=== PATIENT | male | born 1965 | race Caucasian/White ===

== ENCOUNTER 2017-03-19 13:52 | Inpatient (IN) | payer OTHER ==
--- NOTE | 2017-03-19 15:12 | EDPHY ---
HPI/HX/ROS/PE/MDM Narrative: CHIEF COMPLAINT: Shortness of breath HISTORY OF PRESENT ILLNESS: This patient is a diabetic 51-year-old male who presents to the Emergency Department complaining of exertional shortness of breath beginning six days prior to arrival, one day after undergoing a non- contrast MRI to evaluate his chronic back pain. He reports that he has had difficulty walking or moving around without worsening dyspnea since the MRI. He also describes increased upper abdominal bloating. He denies nausea, vomiting, urinary complaints, or chest pain. He denies associated cold symptoms; no fever , chills, cough, or headache. He uses a CPAP while sleeping but has only been using it for one hour per night. No history of asthma, emphysema, DVT, PE, or cardiac disease. REVIEW OF SYSTEMS: Aside from elements discussed in the HPI, a comprehensive 10-point review of systems was reviewed and is negative apart from moderate back pain, chronic. PAST MEDICAL HISTORY: 1. Chronic back pain (MRI last week) - [facility]. No current medications. 2. Hypertension (Lisinopril) 3. Diabetes (Metformin) 4. Ventral hernia, previously evaluated by Dr. Pa. 5. Sleep apnea (CPAP) SOCIAL HISTORY: [facility] patient. at bedside. Non-smoker. Occasional alcohol use. PHYSICAL EXAM: VITAL SIGNS: Reviewed by me GENERAL: Well-developed, obese, appears uncomfortable with movement, in no respiratory distress. HEENT: Atraumatic. Eyes: No icterus, no injection. Mouth: dry mucous membranes. No erythema or lesions. Neck: supple with no adenopathy. LUNGS: Clear to auscultation bilaterally, no wheezes, rhonchi or rales. CARDIAC: Tachycardic, regular rhythm, no rubs, murmurs or gallops. ABDOMEN: Soft, diffusely tender, bowel sounds normal, palpable ventral hernia. BACK: No CVA tenderness. EXTREMITIES: No trauma. Trace pitting edema. Range of motion is normal throughout. NEURO: Alert and oriented, grossly nonfocal. SKIN: Warm and dry, no rash. PSYCHIATRIC: Normal mentation, no agitation. ED Course: This 51-year-old male presents with complaints of persistent exertional dyspnea for the past six days and abdominal pressure that appears to exacerbate the shortness of breath. He is mildly tachycardic at time of exam. O2 sat 92% on RA at triage. His abdomen is diffusely tender, most significant to the epigastrium. He appears uncomfortable with movement and reports worsening dyspnea; however, his lungs are clear to auscultation. Will proceed with cardiopulmonary workup including: labs, EKG, and chest x-ray. IV established. 500ml IV NS administered. 1mg IV Dilaudid administered for back pain. X-ray of the chest reviewed and demonstrates cardiomegaly and is suspicious for left lower lobe pneumonia. Labs reviewed: Troponin elevated at 0.043. NT-proBNP at 7010. WBC elevated at 16.25. Will proceed with sepsis screen. 1 gram IV Ceftriaxone administered for treatment of pneumonia. 1645: I discussed lab and imaging results with the patient as well as my recommendation for admission for further treatment and monitoring of acute CHF and cardiac ischemia. He expresses agreement to this. 324mg PO Aspirin and 20mg IV Lasix administered. 1700: Patient's chest x-ray was read by Radiology as demonstrating possible left lower lobe pneumonia. With this finding, in light of the patient's persistent low-grade tachycardia, and elevated white blood cell count, evaluation for sepsis was started. D-dimer obtained and is elevated at 3.97. CTA of the chest ordered. Severe Sepsis/Septic Shock Care Note The patient presents to the ED with shortness of breath. Possible pneumonia was identified on a chest x-ray at 5:00 p.m. The patient did have evidence of end- organ dysfunction secondary to an elevated lactic acid and did met criteria for severe sepsis. This condition was identified by myself at 1800. The patients vital signs are 150/99, 107, 91% on 2 L, 36.7. The patient has a venous lactic acid performed within 3 hours of the identification of severe sepsis which was found to be 3.4. Patient did have a CT scan performed which demonstrated massive pulmonary emboli bilaterally with central emboli and lower lobe emboli. No pneumonia was identified on the CT scan. Patient's course was discussed with the hospitalist service. I believe that given the patient's the pulmonary embolism, elevated BMP, borderline troponin, patient's diagnosis is most likely pulmonary hypertension secondary to pulmonary embolism resulting in congestive failure and cardiac ischemia. Given this, the patient will not receive 30 cc of fluid per kg and did not receive IV antibiotics. I do not believe the patient is septic. 1735: Consultation with Dr. Franco Govea, hospitalist, who accepts admission 181: CTA results reported to me by Dr. Hdz and are significant for massive PEs bilaterally. I shared these results with Dr. Govea who will manage his treatment following admission. EKG INTERPRETATION: The 12 lead EKG was interpreted by myself: Sinus tachycardia, rate 107; left posterior fascicular block; nonspecific T abnormalities in the inferior leads. See hard copy and/or "tracemaster" electronic copy for interpretation. MDM: Critical care time spent by me, Dr. Diane exclusively with this patient was 45 minutes, exclusive of PA time and exclusive of procedures. The organ system at risk was cardiac and pulmonary and I gave IV fluids, anticoagulants, diuretics, and evaluated the patient for pneumonia, to prevent worsening of the patients condition. Critical care time included obtaining history, performing a physical exam, bedside monitoring of interventions, collecting and interpreting tests and discussion with consultants but not including time spent performing procedures. Differential diagnosis for the patient's shortness of breath was considered including but not limited to pulmonary infectious processes, pulmonary emboli, pulmonary edema, pulmonary infection, congestive heart failure, and cardiac causes. - Data Points Imaging Results: Imaging Impressions Chest X-Ray 03/19/17 15:30 Impression: 1. Moderate enlargement the cardiac silhouette. 2. Possible left lower lobe pneumonia. 3. Enlargement of the hilar structures bilaterally, possible pulmonary artery hypertension versus lymphadenopathy.. Chest/Thorax CTA 03/19/17 17:25 Impression: Large line bilateral pulmonary emboli. Associated bowing of the interventricular septum toward the left ventricle. Results called to Dr. Dilia Diane at the time of the interpretation. Laboratory Results: Laboratory Results 03/19/17 15:15 03/19/17 15:15 03/19/17 03/19/17 03/19/17 16:40 16:15 15:15 WBC RBC Hgb Hct MCV MCH MCHC RDW Plt Count MPV Neut % (Auto) Lymph % (Auto) [place] % (Auto) Eos % (Auto) Baso % (Auto) Nucleat RBC Rel Count Absolute Neuts (auto) Absolute Lymphs (auto) Absolute Monos (auto) Absolute Eos (auto) Absolute Basos (auto) Absolute Nucleated RBC Immature Gran % Immature Gran # PT 17.8 SEC H SEC (12.0-15.0) INR 1.47 H (0.83-1.16) APTT 58.8 SEC H SEC (23.0-38.0) D-Dimer 3.97 ug/mLFEU H ug/mLFEU (0.00-0.50) Sodium 140 mEq/L mEq/L (134-144) Potassium 5.0 mEq/L mEq/L (3.5-5.2) Chloride 110 mEq/L mEq/L (97-110) Carbon Dioxide 17 mEq/l L mEq/l (22-31) Anion Gap 13 mEq/L mEq/L (8-16) BUN 24 mg/dL H mg/dL (7-23) Creatinine 1.1 mg/dL mg/dL (0.7-1.3) Estimated GFR > 60 Glucose 243 mg/dL H mg/dL (70-100) Calcium 9.5 mg/dL mg/dL (8.5-10.4) Total Bilirubin 1.4 mg/dL mg/dL 1.4 mg/dL mg/dL (0.1-1.4) (0.1-1.4) Conjugated Bilirubin 0.7 mg/dL H mg/dL (0.0-0.5) Unconjugated Bilirubin 0.7 mg/dL mg/dL (0.0-1.1) AST 32 IU/L IU/L (17-59) ALT 43 IU/L IU/L (21-72) Alkaline Phosphatase 67 IU/L IU/L (38-126) Troponin I 0.043 ng/mL H ng/mL (0-0.034) NT-Pro-B Natriuret Pep 7010 pg/mL H pg/mL (0-125) Total Protein 6.6 g/dL g/dL (6.3-8.2) Albumin 4.1 g/dL g/dL (3.5-5.0) 03/19/17 15:15 WBC 16.25 10^3/uL H 10^3/uL (3.80-9.50) RBC 6.62 10^6/uL H 10^6/uL (4.40-6.38) Hgb 18.5 g/dL H g/dL (13.7-17.5) Hct 56.6 % H % (40.0-51.0) MCV 85.5 fL fL (81.5-99.8) MCH 27.9 pg pg (27.9-34.1) MCHC 32.7 g/dL g/dL (32.4-36.7) RDW 18.6 % H % (11.5-15.2) Plt Count 274 10^3/uL 10^3/uL (150-400) MPV 11.6 fL fL (8.7-11.7) Neut % (Auto) 84.1 % H % (39.3-74.2) Lymph % (Auto) 10.7 % L % (15.0-45.0) [place] % (Auto) 4.2 % L % (4.5-13.0) Eos % (Auto) 0.1 % L % (0.6-7.6) Baso % (Auto) 0.5 % % (0.3-1.7) Nucleat RBC Rel Count 0.0 % % (0.0-0.2) Absolute Neuts (auto) 13.68 10^3/uL H 10^3/uL (1.70-6.50) Absolute Lymphs (auto) 1.74 10^3/uL 10^3/uL (1.00-3.00) Absolute Monos (auto) 0.68 10^3/uL 10^3/uL (0.30-0.80) Absolute Eos (auto) 0.01 10^3/uL L 10^3/uL (0.03-0.40) Absolute Basos (auto) 0.08 10^3/uL 10^3/uL (0.02-0.10) Absolute Nucleated RBC 0.00 10^3/uL 10^3/uL (0-0.01) Immature Gran % 0.4 % % (0.0-1.1) Immature Gran # 0.06 10^3/uL 10^3/uL (0.00-0.10) PT INR APTT D-Dimer Sodium Potassium Chloride Carbon Dioxide Anion Gap BUN Creatinine Estimated GFR Glucose Calcium Total Bilirubin Conjugated Bilirubin Unconjugated Bilirubin AST ALT Alkaline Phosphatase Troponin I NT-Pro-B Natriuret Pep Total Protein Albumin Medications Given: Discontinued Medications Furosemide (Lasix Injection) 20 mg IVP EDNOW ONE Stop: 03/19/17 17:23 Last Admin: 03/19/17 18:13 Dose: 20 mg Heparin Sodium (Porcine) (Heparin Injection) 0 unit IVP EDNOW ONE PRN Reason: Protocol Stop: 03/19/17 18:11 Last Admin: 03/19/17 18:54 Dose: Not Given Hydromorphone HCl (Dilaudid) 1 mg IVP EDNOW ONE Stop: 03/19/17 16:08 Last Admin: 03/19/17 16:47 Dose: 1 mg Sodium Chloride (Ns) 500 mls @ 0 mls/hr IV ONCE ONE PRN Reason: As Directed Stop: 03/19/17 15:31 Last Admin: 03/19/17 15:41 Dose: 500 mls Ceftriaxone Sodium/Dextrose (Rocephin 1 Gm (Premix)) 50 mls @ 100 mls/hr IV EDNOW ONE PRN Reason: Protocol Stop: 03/19/17 17:50 Last Admin: 03/19/17 18:13 Dose: Not Given Heparin Sodium (Porcine) (Heparin 50 Units/Ml (Premix)) 500 mls @ 0 mls/hr IV EDNOW ONE; Per Protocol PRN Reason: Protocol Stop: 03/19/17 18:11 Last Admin: 03/19/17 18:55 Dose: Not Given General Time Seen by Provider: 03/19/17 15:06 Initial Vital Signs: Initial Vital Signs Temperature (C) 36.7 C 03/19/17 14:02 Heart Rate 101 H 03/19/17 14:02 Respiratory Rate 18 03/19/17 14:02 Blood Pressure 143/104 H 03/19/17 14:02 O2 Sat (%) 92 03/19/17 14:02 O2 Delivery Mode Nasal Cannula O2 (L/minute) 2 Allergies/Adverse Reactions: No Known Allergies Allergy (Unverified 03/19/17 14:00) Home Medications: Medication Instructions Recorded Aspirin [Aspirin 81mg (*)] 81 mg PO DAILY 03/19/17 Ezetimibe [Zetia 10 MG (*)] 10 mg PO HS 03/19/17 Furosemide [Lasix] 20 mg PO DAILY PRN 03/19/17 Levothyroxine [Synthroid 175 mcg 175 mcg PO DAILY06 03/19/17 (*)] Lisinopril [Zestril 20 mg (*)] 10 mg PO DAILY 03/19/17 [place]-3 Fatty Acids [Fish Oil 1000 1,000 mg PO DAILY 03/19/17 mg (*)] Potassium Chloride [Klor-Con M10] 20 meq PO DAILY PRN 03/19/17 metFORMIN HCL [Glucophage 500 mg 500 mg PO BID 03/19/17 (*)] Departure - Departure Disposition: [facility] Inpatient Acute Clinical Impression: Cardiac ischemia CHF (congestive heart failure) Qualifiers: Congestive heart failure type: unspecified congestive heart failure type Congestive heart failure chronicity: acute Qualified Code(s): I50.9 - Heart failure, unspecified Chronic back pain Qualifiers: Back pain location: back pain in unspecified location Back pain laterality: bilateral Qualified Code(s): M54.9 - Dorsalgia, unspecified Pulmonary embolism Qualifiers: Pulmonary embolism type: other Chronicity: acute Acute cor pulmonale presence: with acute cor pulmonale Qualified Code(s): I26.09 - Other pulmonary embolism with acute cor pulmonale Condition: Fair Report Scribed for: Dilia Diane Report Scribed by: Ailyn Holt Date of Report: 03/19/17 Time of Report: 15:12 Physician Review and Approval Statement: Portions of this note were transcribed by a medical cash poster. I personally performed a history, physical exam, medical decision making, and confirmed accuracy of information the transcribed note.
[2017-03-19] MEDS ORDERED: NS 500 ML IV ONE (15:30)
[2017-03-19 15:39] LABS: % IMMATURE GRANULYOCYTES 0.4 % (0.0-1.1); ABSOLUTE IMMATURE GRANULOCYTES 0.06 10^3/uL (0.00-0.10); ADD DIFF? NO; ADD MORPH? NO; ADD SCAN? NO; ATYPICAL LYMPHOCYTE FLAG 0 (0-99); FRAGMENT RBC FLAG 0 (0-99); HEMATOCRIT 56.6 % (40.0-51.0); HEMOGLOBIN 18.5 g/dL (13.7-17.5); LEFT SHIFT FLG 0 (0-99); LIPEMIA HEMOLYSIS FLAG 80 (0-99); MEAN CELL HEMOGLOBIN 27.9 pg (27.9-34.1); MEAN CELL HEMOGLOBIN CONCENTR. 32.7 g/dL (32.4-36.7); MEAN CELL VOLUME 85.5 fL (81.5-99.8); MEAN PLATELET VOLUME 11.6 fL (8.7-11.7); PLATELET CLUMPS FLAG 0 (0-99); PLATELET COUNT 274 10^3/uL (150-400); RED BLOOD CELL COUNT 6.62 10^6/uL (4.40-6.38); RED CELL DISTRIBUTION WIDTH 18.6 % (11.5-15.2)
--- NOTE | 2017-03-19 15:46 | CPEKG ---
Heart Rate: 107 RR Interval: 561 P-R Interval: 160 QRSD Interval: 94 QT Interval: 344 QTC Interval: 459 P [place]: 25 QRS [place]: 139 T Wave [place]: -34 EKG Severity - ABNORMAL ECG - EKG Impression: SINUS TACHYCARDIA EKG Impression: LEFT POSTERIOR FASCICULAR BLOCK EKG Impression: NONSPECIFIC T ABNORMALITIES, INFERIOR LEADS Electronically Signed By: Lobo Sandoval 22-Mar-2017 12:16:05
[2017-03-19 16:06] LABS: ALANINE AMINOTRANSFERASE 43 IU/L (21-72); ALBUMIN 4.1 g/dL (3.5-5.0); ALKALINE PHOSPHATASE 67 IU/L (38-126); ANION GAP 13 mEq/L (8-16); ASPARTATE AMINOTRANSFERASE 32 IU/L (17-59); BILIRUBIN,TOTAL 1.4 mg/dL (0.1-1.4); BILIRUBIN-CONJUGATED 0.7 mg/dL (0.0-0.5); BILIRUBIN-UNCONJUGATED 0.7 mg/dL (0.0-1.1); CALCIUM 9.5 mg/dL (8.5-10.4); CARBON DIOXIDE 17 mEq/l (22-31); CHLORIDE 110 mEq/L (97-110); CREATININE 1.1 mg/dL (0.7-1.3); GLOMERULAR FILTRATION RATE > 60; GLUCOSE 243 mg/dL (70-100); SODIUM 140 mEq/L (134-144); TOTAL PROTEIN 6.6 g/dL (6.3-8.2)
[2017-03-19] MEDS ORDERED: HYDROmorphONE/DILAUDID 1 MG/ML SYR IVP ONE (16:07)
[2017-03-19 16:17] LABS: TROPONIN I 0.043 ng/mL (0-0.034)
[2017-03-19] MEDS ORDERED: FUROSEMIDE 20 MG/2 ML VIAL IVP ONE ×2 (17:22→18:47)
[2017-03-19] MEDS ORDERED: IOPAMIDOL (ISOVUE 370) 100 ML BTL IV ONE (17:33)
[2017-03-19 17:38] LABS: BILIRUBIN,TOTAL 1.4 mg/dL (0.1-1.4)
[2017-03-19 17:40] LABS: APTT 58.8 SEC (23.0-38.0); INR 1.47 (0.83-1.16); PROTIME(PATIENT) 17.8 SEC (12.0-15.0)
[2017-03-19] MEDS ORDERED: HEPARIN/DEXTROSE 500 ML IV ONE (18:10)
[2017-03-19] MEDS ORDERED: HEPARIN 10,000 UNIT/10 ML MDV IVP ONE ×2 (18:10→18:46)
[2017-03-19] MEDS ORDERED: HEPARIN 10,000 UNIT/10 ML MDV IVP PRN (18:46)
[2017-03-19 19:04] LABS: LACGHOST ORDER
[2017-03-19] MEDS: HEPARIN/DEXTROSE 500 ML IV SCH (19:45)
--- NOTE | 2017-03-19 19:45 | GHP ---
[f rep st] HISTORY AND PHYSICAL DATE OF ADMISSION: 03/19/2017 CHIEF COMPLAINT: Shortness of breath. HISTORY OF PRESENT ILLNESS: This is a 51-year-old male with history of chronic back pain, ongoing 1 6-1/2 years, that has been worsening over the past 2-3 years and has been followed at the [place]. He fernandez d an MRI of his back on Sunday. Since the MRI, he has reported increased shortness of breath. For the past week, he has noticed extreme dyspnea on exertion. He has had orthopnea for some time and s leeps in a recliner. He denies any chest pain. He denies any fevers or chills. He was noted to fernandez ve a room air oxygen saturation of 87% on initial presentation to the emergency department. The patient has a history of hypoxemia that has been attributed to obstructive sleep apnea. He has been using a CPAP since July, but he thinks he has actually been feeling worse since using the CP AP. PAST MEDICAL HISTORY: 1. Diabetes. 2. Obstructive sleep apnea. 3. Chronic low back pain. PAST SURGICAL HISTORY: 1. Left little finger ORIF. 2. Adenoidectomy for obstructive sleep apnea. HOME MEDICATIONS: Reviewed. Refer to [employer] for details. ALLERGIES: No known drug allergies. SOCIAL HISTORY: He lives with his in [place]. He chews tobacco occasionally. He denies any illicit drug use. He drinks alcohol occasionally. FAMILY HISTORY: Reviewed and noncontributory. REVIEW OF SYSTEMS: Comprehensive 10-point review of systems was done and was negative except for as mentioned in the HPI and below. BACK: The patient has chronic low back pain that radiates to both of his thighs and has some numbness. This pain has been stable. He has noticed increased pain in his lower legs over the past few days as well. He has been taking Lasix as needed, which he had lef t over from a hospitalization for DKA a few years ago. PHYSICAL EXAMINATION: VITAL SIGNS: Blood pressure 150/99, pulse of 107, respiratory rate 16. O2 s at 91% on 2 L, 87% on room air. GENERAL: No acute distress. HEAD: Normocephalic, atraumatic. EY ES: PERRLA. Sclerae anicteric. MOUTH: Moist mucous membranes. NECK: Supple. No lymphadenopath y. CARDIOVASCULAR: S1, S2. There is no appreciable JVD. There is trace lower extremity edema. P ULMONARY: Diminished breath sounds bilaterally with no wheezes, rales, or rhonchi. Increased respi ratory effort. ABDOMEN: Soft, mildly distended. There is no guarding or rebound tenderness. Norm oactive bowel sounds. EXTREMITIES: No clubbing or cyanosis. NEURO: Cranial nerves 2-12 grossly i ntact. No focal motor or sensory deficits. SKIN: Clear. No rashes. DIAGNOSTICS: WBC 16.25, hemoglobin 18.5, hematocrit 56.6, platelets 274. D-dimer 3.97, INR 1.47. Venous lactic acid 3.4. Sodium 140, potassium 5, chloride 110, BUN 24, creatinine 1.1, glucose 243. AST and ALT within normal limits. Protein and albumin within normal limits. BNP 7010. Troponin 0.043. EKG, which I visualized and personally interpreted, shows sinus tachycardia, rate 107 beats per kaya te, with no acute ischemic changes. There is a left posterior fascicular block. Chest x-ray was done, which I also visualized and personally interpreted. Showed cardiomegaly. CT angio of the chest revealed large bilateral pulmonary emboli, associated with bowing of the inter ventricular septum towards the left ventricle. ASSESSMENT: This is a 51-year-old male presenting with: 1. Acute hypoxemic respiratory failure with dyspnea on exertion and orthopnea due to below. 2. Submassive pulmonary embolism. 3. Acute diastolic heart failure due to above. 4. History of diabetes mellitus type 2. 5. Elevated/indeterminate troponin, likely due to myocardial strain in the setting of submassive pu lmonary embolism. 6. Mild polycythemia, likely due to chronic hypoxemia. 7. Leukocytosis, most likely due to pulmonary embolism. 8. Elevated INR and PTT, possibly due to acute clot. His LFTs, including his AST, ALT, as well as total protein and albumin are within normal limits. 9. Chronic low back pain. 10. Elevated venous lactate, most likely due to hypoxemia in the setting of pulmonary embolism with out signs or symptoms of sepsis. PLAN: 1. Admit to telemetry. 2. Start heparin drip and transition to low molecular weight heparin in the morning, once he proves clinical stability. 3. Trend troponins. 4. IV Lasix has been ordered today. Should be reassessed prior to dosing again in the morning. 5. Echocardiogram. 6. Supplemental oxygen. 7. We will repeat lactic acid to ensure it is normalizing. DISPOSITION: The patient will be admitted to the hospital under inpatient status. Anticipated disc harge date is uncertain at this time; however, the patient would like to be discharged from the hosp ital as soon as it is safe, since he has a strong desire to return back to work. /[id number]/MODL
[2017-03-19] MEDS ORDERED: FUROSEMIDE 20 MG TAB PO PRN (23:11)
[2017-03-20] MEDS: LEVOTHYROXINE 175 MCG TAB PO SCH (05:54)
[2017-03-20 08:05] LABS: % IMMATURE GRANULYOCYTES 0.3 % (0.0-1.1); ABSOLUTE IMMATURE GRANULOCYTES 0.05 10^3/uL (0.00-0.10); ABSOLUTE NRBC COUNT 0.02 10^3/uL (0-0.01); ADD DIFF? NO; ADD MORPH? NO; ADD SCAN? NO; ATYPICAL LYMPHOCYTE FLAG 0 (0-99); FRAGMENT RBC FLAG 0 (0-99); HEMATOCRIT 53.2 % (40.0-51.0); HEMOGLOBIN 17.5 g/dL (13.7-17.5); LEFT SHIFT FLG 0 (0-99); LIPEMIA HEMOLYSIS FLAG 80 (0-99); MEAN CELL HEMOGLOBIN CONCENTR. 32.9 g/dL (32.4-36.7); MEAN CELL VOLUME 85.3 fL (81.5-99.8); MEAN PLATELET VOLUME 11.3 fL (8.7-11.7); NRBC-AUTO% 0.1 % (0.0-0.2); PLATELET CLUMPS FLAG 0 (0-99); PLATELET COUNT 263 10^3/uL (150-400); RED BLOOD CELL COUNT 6.24 10^6/uL (4.40-6.38); RED CELL DISTRIBUTION WIDTH 18.5 % (11.5-15.2)
[2017-03-20 08:23] LABS: ANION GAP 13 mEq/L (8-16); CARBON DIOXIDE 18 mEq/l (22-31); CHLORIDE 109 mEq/L (97-110); CREATININE 1.2 mg/dL (0.7-1.3); GLOMERULAR FILTRATION RATE > 60; GLUCOSE 186 mg/dL (70-100); POTASSIUM 4.6 mEq/L (3.5-5.2); SODIUM 140 mEq/L (134-144)
[2017-03-20 08:33] LABS: TROPONIN I 0.053 ng/mL (0-0.034)
[2017-03-20] MEDS: HEPARIN/DEXTROSE 500 ML IV SCH (09:54)
[2017-03-20] MEDS: ASPIRIN 81 MG CHEWABLE TAB PO SCH (10:07)
[2017-03-20] MEDS: LISINOPRIL 10 MG TAB PO SCH (10:07)
[2017-03-20] MEDS: OMEGA-3 FATTY ACIDS 1,000 MG CAP PO SCH (10:07)
[2017-03-20] MEDS ORDERED: D50W 25 GM/50 ML SYR IVP PRN (10:09)
--- NOTE | 2017-03-20 10:12 | HOSPPROG ---
Hospitalist Progress Note Assessment/Plan: # acute PE with markedly elevated RVSP (90mmHg per prelim report) - currently on heparin gtt - discussed with Dr Argueta - he will consult and consider systemic tPA; risks and benefits discussed # acute hypoxic resp failure d/t PE # severe pulm-htn d/t PE: there may be a small chronic component given CAMPOS but mostly this is acute # lactic acidosis d/t PE # CAMPOS # DM2 - glucs slightly elevated but reasonable - hold metformin for now - add low dose SSI # chronic low back pain ## 40 mins critical care time; critically ill from PE causing acute R sided heard failure, considering tPA Subjective: still very with minimal activity Objective: Vital Signs Temp Pulse Resp BP Pulse Ox 36.6 C 94 23 H 118/105 H 95 03/20/17 07:27 03/20/17 07:27 03/20/17 07:27 03/20/17 07:27 03/20/17 07:27 Laboratory Results 03/20/17 07:55 03/20/17 07:55 03/19/17 03/20/17 03/21/17 05:59 05:59 05:59 Intake Total 1210 Output Total 1125 Balance 85 PT 17.8 SEC (12.0-15.0) H 03/19/17 16:40 INR 1.47 (0.83-1.16) H 03/19/17 16:40 - Physical Exam Constitutional: other (dyspneic) Cardiovascular: regular rate and rhythym, no murmur, rub, or gallop, other ( prominent P2) Respiratory: no rales or rhonchi, clear to auscultation, respiratory distress ( mod/severe) Gastrointestinal: normoactive bowel sounds, soft, non-tender abdomen, no palpable masses ICD10 Worksheet Patient Problems: Problems Problem Status Onset CHF (congestive heart failure) Acute Cardiac ischemia Acute Chronic back pain Acute Pulmonary embolism Acute
--- NOTE | 2017-03-20 11:35 | ECHO ---
[id number] + + [address] : : [place] [address] : : [phone] + + Adult Echocardiographic Report + ----+ :Name: PUNEET WILSON Diann Date: 03/20/2017 09:06 AM : : Hospital Admission Number: [id number] Location: 210: :: 1965 Gender: Male Height: 67 in : :Age: 51 yrs Race: WH Weight: 250 lb : :Reason For Study: Heart failure with PE : : BSA: 2.2 meters2 : + ----+ MMode/2D Measurements \T\ Calculations LVIDd: 3.1 cm EDV(Teich): 37.6 ml Ao root diam: 3.9 cm LA dimension: 3.9 cm Normal Measurement Values: + + :LVIDd (3.5-5.7cm) IVSd (0.6-1.1cm) LVPWd (0.6-1.1cm) Aortic Root (2.0-3.7cm)Left Atrium (1.5-4.0cm): :LV Vol(d) (76-115ml) LV Vol(s) (29-48ml) Ejec Fraction (50-65%)PV Amrik (0.6- 1.2m/s) TV Amrik (0.4-1.0m/s) : :MV E Amrik (0.8-1.0m/s)MV A Amrik (0.3-1.0m/s)LVOT Amrik (0.7-1.2m/s) Asc Ao Amrik ( 0.9-1.8m/s) : + + Doppler Measurements \T\ Calculations MV E max amrik: 30.1 cm/sec Ao V2 max: 73.5 cm/sec TR max amrik: 426.0 cm/sec MV A max amrik: 53.3 cm/sec Ao max P.2 mmHg TR max P.6 mmHg MV E/A: 0.56 RAP systole: 20.0 mmHg RVSP(TR): 92.6 mmHg Left Ventricle The left ventricular cavity is small. There is normal left ventricular wall thickness. The left ventricle is hyperdynamic. Ejection Fraction = 70-75%. Flattened septum is consistent with RV pressure/volume overload. Right Ventricle The right ventricle is moderately dilated. The right ventricular systolic function is severely reduced. Atria The left atrial size is normal. The right atrium is mild to moderately dilated. The interatrial septum is intact with no evidence for an atrial septal defect. Mitral Valve The mitral valve is normal. There is no evidence of mitral valve prolapse. There is no mitral valve stenosis. Tricuspid Valve Normal tricuspid valve. There is mild tricuspid regurgitation. Right ventricular systolic pressure is 93mmHg. There is Doppler evidence for severe pulmonary hypertension. Aortic Valve The aortic valve opens well. There is no aortic stenosis. There is no aortic insufficiency. Pulmonic Valve The pulmonic valve is not well visualized. There is no pulmonic valvular regurgitation. Great Vessels The aortic root is normal size. Pericardium/Pleural There is no pericardial effusion. Conclusion A complete two-dimensional transthoracic echocardiogram was performed (2D, M-mode, Doppler and color flow Doppler). The patient has a dilated IVC. The left ventricular cavity is small. The left ventricle is hyperdynamic. Ejection Fraction = 70-75%. The right ventricle is moderately dilated. The right ventricular systolic function is severely reduced. The right atrium is mild to moderately dilated. There is mild tricuspid regurgitation. Right ventricular systolic pressure is 93mmHg. There is Doppler evidence for severe pulmonary hypertension. Final Reading Physician: Rachel Biggs signed on 03/20/2017 11:33 AM Ordering Physician: Franco Govea Performed By: Josey Cassidy RDCS
[2017-03-20] MEDS ORDERED: ALTEPLASE 100 MG in NS 200 ML IV ONE (12:05)
[2017-03-20] MEDS: INSULIN LISPRO 100 UNIT/ML SC SCH ×2 (12:15→17:08)
--- NOTE | 2017-03-20 12:32 | GCON ---
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 HISTORY OF PRESENT ILLNESS: The patient is a very pleasant 51-year-old white male with a past medic al history of diabetes, obstructive sleep apnea, and chronic back pain. He presents with a several day history of increasing breathlessness. He denies any recent surgery. There has been no long car or plane rides. He has chronic back pain and is not terribly mobile secondary to this. He had an MRI recently and subsequently had increasing shortness of breath thereafter. However, there is no c hest pain, pleuritic-type chest pain, or angina equivalent. He denies any fever or night sweats. H e is hypoxemic. PAST MEDICAL HISTORY: Significant for obstructive sleep apnea for which he is on CPAP, diabetes, ch ronic back pain. PAST SURGERIES: He has had a left finger ORIF and adenoidectomy for obstructive sleep apnea. ALLERGIES: No allergies to medications. SOCIAL HISTORY: No history of tobacco use. He does chew tobacco. Infrequent alcohol use. He live s with his in [place]. He has good family support. PHYSICAL EXAMINATION: VITAL SIGNS: Blood pressure is 133/90, pulse is 100, respirations 24, temper ature 36.8, oxygen saturation 95% on 4 L. GENERAL: He is morbidly obese but pleasant 51-year-old w britney male who is resting comfortably in no acute distress. HEENT: Eyes: IFTIKHAR, EOMI. Throat shows no erythema or tonsillar hypertrophy. NECK: Supple. No cervical adenopathy. HEART: Regular rat e and rhythm without murmurs, rubs, or gallops. LUNGS: Clear to auscultation. No wheeze or rhonch i. ABDOMEN: Soft, nontender. Bowel sounds are present in all 4 quadrants. EXTREMITIES: No clubb ing, cyanosis but he has 1+ lower extremity edema. LABORATORIES: White count 15.5, hemoglobin 17, hematocrit 53, platelet count is 263. INR is 1.47. Sodium 140, potassium 4.6, chloride 109 CO2 is 18, BUN 25, creatinine 1.2, glucose is 186. Troponi ns are high x2. BNP is elevated at 7010. CT angiogram of the chest shows large volume bilateral pulmonary emboli. There is no saddle embolus . Echocardiogram was reported to have high pulmonary artery pressures approximating 90 mmHg and some e vidence of right heart strain. IMPRESSION: 1. Large volume pulmonary embolus. 2. Likely deep venous thrombosis. 3. Acute pulmonary hypertension. 4. Obstructive sleep apnea. 5. Diabetes. 6. Obesity. 7. Chronic back pain. RECOMMENDATIONS: 1. Patient has been transferred to the intensive care unit. 2. We will discuss options with the family, however, feel at this time that thrombolysis is indicat ed. 3. Continue heparin for now. /[id number]/MODL
[2017-03-20] MEDS ORDERED: ALBUTEROL 3 ML DEYVIAL IH PRN (14:59)
[2017-03-20] MEDS ORDERED: ALBUTEROL 3 ML DEYVIAL ONE (15:04)
[2017-03-20] MEDS: guaiFENesin/CODEINE PHOS 10 ML UDCUP PO PRN (15:34)
[2017-03-20 15:38] LABS: HEMATOCRIT 53.1 % (40.0-51.0); HEMOGLOBIN 17.4 g/dL (13.7-17.5)
[2017-03-20 20:55] LABS: HEMATOCRIT 53.1 % (40.0-51.0); HEMOGLOBIN 17.1 g/dL (13.7-17.5)
[2017-03-20] MEDS: HYDROCODONE/APAP 5/325 TAB PO PRN (21:05)
[2017-03-20] MEDS: EZETIMIBE 10 MG TAB PO SCH (21:12)
[2017-03-21 05:39] LABS: % IMMATURE GRANULYOCYTES 0.4 % (0.0-1.1); ABSOLUTE IMMATURE GRANULOCYTES 0.06 10^3/uL (0.00-0.10); ADD DIFF? NO; ADD MORPH? NO; ADD SCAN? NO; ATYPICAL LYMPHOCYTE FLAG 0 (0-99); FRAGMENT RBC FLAG 0 (0-99); HEMATOCRIT 48.3 % (40.0-51.0); HEMOGLOBIN 15.8 g/dL (13.7-17.5); LEFT SHIFT FLG 0 (0-99); LIPEMIA HEMOLYSIS FLAG 80 (0-99); MEAN CELL HEMOGLOBIN 28.1 pg (27.9-34.1); MEAN CELL HEMOGLOBIN CONCENTR. 32.7 g/dL (32.4-36.7); MEAN CELL VOLUME 85.9 fL (81.5-99.8); MEAN PLATELET VOLUME 11.6 fL (8.7-11.7); PLATELET CLUMPS FLAG 10 (0-99); PLATELET COUNT 214 10^3/uL (150-400); RED BLOOD CELL COUNT 5.62 10^6/uL (4.40-6.38); RED CELL DISTRIBUTION WIDTH 17.8 % (11.5-15.2)
[2017-03-21] MEDS: LEVOTHYROXINE 175 MCG TAB PO SCH (05:52)
[2017-03-21 07:49] LABS: ALANINE AMINOTRANSFERASE 38 IU/L (21-72); ALBUMIN 3.3 g/dL (3.5-5.0); ALKALINE PHOSPHATASE 52 IU/L (38-126); ANION GAP 9 mEq/L (8-16); ASPARTATE AMINOTRANSFERASE 25 IU/L (17-59); BILIRUBIN,TOTAL 1.6 mg/dL (0.1-1.4); CALCIUM 8.4 mg/dL (8.5-10.4); CARBON DIOXIDE 22 mEq/l (22-31); CHLORIDE 108 mEq/L (97-110); CREATININE 0.9 mg/dL (0.7-1.3); GLOMERULAR FILTRATION RATE > 60; GLUCOSE 112 mg/dL (70-100); POTASSIUM 3.9 mEq/L (3.5-5.2); SODIUM 139 mEq/L (134-144); TOTAL PROTEIN 5.6 g/dL (6.3-8.2)
[2017-03-21] MEDS: LISINOPRIL 10 MG TAB PO SCH (08:08)
[2017-03-21] MEDS: OMEGA-3 FATTY ACIDS 1,000 MG CAP PO SCH (08:08)
[2017-03-21] MEDS: ASPIRIN 81 MG CHEWABLE TAB PO SCH (08:08)
[2017-03-21] MEDS: INSULIN LISPRO 100 UNIT/ML SC SCH ×3 (08:08→17:00)
--- NOTE | 2017-03-21 08:47 | HOSPPROG ---
Hospitalist Progress Note Assessment/Plan: # acute PE with markedly elevated RVSP (~90mmHg) - s/p tPA - check CXR and repeat echo today # hemoptysis - d/t PE and tPA, resolved - check CXR # acute hypoxic resp failure d/t PE # severe pulm-htn d/t PE: there may be a small chronic component given CAMPOS but mostly this is acute # lactic acidosis d/t PE # CAMPOS # DM2 - glucs ok - hold metformin for now - add low dose SSI # chronic low back pain Subjective: s/p tPA; had hemoptysis last night which resolved at 0200; breathing feels better Objective: Vital Signs Temp Pulse Resp BP Pulse Ox 36.6 C 76 18 146/80 H 95 03/21/17 08:00 03/21/17 08:00 03/21/17 08:00 03/21/17 08:08 03/21/17 08:00 Laboratory Results 03/21/17 05:30 03/21/17 05:30 03/20/17 03/21/17 03/22/17 05:59 05:59 05:59 Intake Total 1210 1494 Output Total 1125 1775 Balance 85 -281 PT 17.8 SEC (12.0-15.0) H 03/19/17 16:40 INR 1.47 (0.83-1.16) H 03/19/17 16:[address] Argueta - transfer to floor echo reviewed - Physical Exam Constitutional: appears nourished Cardiovascular: regular rate and rhythym, no murmur, rub, or gallop Respiratory: inspiratory crackles (L base), other (mild resp distress), No expiratory wheeze, No bronchial breath sounds Gastrointestinal: normoactive bowel sounds, soft, non-tender abdomen, no palpable masses ICD10 Worksheet Patient Problems: Problems Problem Status Onset CHF (congestive heart failure) Acute Cardiac ischemia Acute Chronic back pain Acute Pulmonary embolism Acute
--- NOTE | 2017-03-21 09:20 | PDINTPN ---
Customer [employer] Specialist Progress Note Assessment/Plan: Assessment/Plan: * Large pulmonary embolism-Status post tPA. Markedly improved -continue heparin for now -will start Eliquis tomorrow * Hemoptysis-resolved * Pulmonary hypertension-right ventricular systolic pressure of 92 -recheck echo today * DVT * Chronic back pain * Diabetes * Obstructive sleep apnea * Out of bed to chair * Ambulation Subjective: Looks and feels markedly improved. Hemoptysis has resolved. There is no chest pain, and he is breathing easier Objective: Vital Signs Temp Pulse Resp BP Pulse Ox 36.6 C 76 18 146/80 H 95 03/21/17 08:00 03/21/17 08:00 03/21/17 08:00 03/21/17 08:08 03/21/17 08:00 Laboratory Results 03/21/17 05:30 03/21/17 05:30 03/20/17 03/21/17 03/22/17 05:59 05:59 05:59 Intake Total 1210 1494 Output Total 1125 1775 Balance 85 -281 PT 17.8 SEC (12.0-15.0) H 03/19/17 16:40 INR 1.47 (0.83-1.16) H 03/19/17 16:40 Physical Exam - Physical Exam General Appearance: alert, no apparent distress EENT: PERRL/EOMI, normal ENT inspection, pharynx normal, TMs normal Neck: non-tender, full range of motion, supple, normal inspection Respiratory: crackles (Few), No respiratory distress, No wheezing Cardiac/Chest: normal peripheral pulses, regular rate, rhythm, other (Loud P2) Abdomen: normal bowel sounds, non-tender, soft Male Genitalia: deferred Rectal: deferred Skin: normal color, warm/dry Extremities: normal range of motion, non-tender, normal inspection, normal capillary refill Neuro/Psych: no motor/sensory deficits, alert, normal mood/affect, oriented x 3 ICD10 Worksheet Patient Problems: Problems Problem Status Onset CHF (congestive heart failure) Acute Cardiac ischemia Acute Chronic back pain Acute Pulmonary embolism Acute
--- NOTE | 2017-03-21 12:06 | ECHO ---
[id number] + + [address] : : [facility] [address] : : [phone] + + Adult Echocardiographic Report + ----+ :Name: PUNEET WILSON Laurarenny Date: 03/21/2017 11:27 AM : : Hospital Admission Number: [id number] Location: 253: :: 1965 Gender: Male Height: 67 in : :Age: 51 yrs Race: WH Weight: 250 lb : :Reason For Study: Eval Pulmonary Pressures : : BSA: 2.2 meters2 : :History: Known PE : + ----+ Doppler Measurements \T\ Calculations TR max nelly: 349.0 cm/sec TR max P.5 mmHg RAP systole: 20.0 mmHg RVSP(TR): 55.5 mmHg Tricuspid Valve There is mild tricuspid regurgitation. Right ventricular systolic pressure is 55mmHg. Compared to the previous exam the pulmonary pressures have improved from 93 mmHg to and average of 55 mmHg. Conclusion This is a limited echo to evaluate for pulmonary pressures. There is mild tricuspid regurgitation. Right ventricular systolic pressure is 55mmHg. Compared to the previous exam the pulmonary pressures have improved from 93 mmHg to and average of 55 mmHg. Final Reading Physician: Rachel Biggs signed on 03/21/2017 12:04 PM Ordering Physician: Trent Argueta Performed By: Lyle Caldwell, ERANCS
[2017-03-21 14:23] LABS: PROTEIN C ACTIVITY 81 % (70 - 150)
[2017-03-21 15:12] LABS: HEMATOCRIT 51.6 % (40.0-51.0); HEMOGLOBIN 16.8 g/dL (13.7-17.5)
[2017-03-21] MEDS: HYDROCODONE/APAP 5/325 TAB PO PRN (17:00)
[2017-03-21] MEDS: HEPARIN/DEXTROSE 500 ML IV SCH (17:40)
[2017-03-21] MEDS: EZETIMIBE 10 MG TAB PO SCH (21:36)
[2017-03-21] MEDS: guaiFENesin/CODEINE PHOS 10 ML UDCUP PO PRN (21:39)
[2017-03-22] MEDS: HEPARIN/DEXTROSE 500 ML IV SCH (05:34)
[2017-03-22] MEDS: LEVOTHYROXINE 175 MCG TAB PO SCH (05:34)
[2017-03-22 05:53] LABS: % IMMATURE GRANULYOCYTES 0.6 % (0.0-1.1); ABSOLUTE IMMATURE GRANULOCYTES 0.06 10^3/uL (0.00-0.10); ADD DIFF? NO; ADD MORPH? NO; ADD SCAN? NO; ATYPICAL LYMPHOCYTE FLAG 0 (0-99); FRAGMENT RBC FLAG 0 (0-99); HEMATOCRIT 48.9 % (40.0-51.0); HEMOGLOBIN 15.7 g/dL (13.7-17.5); LEFT SHIFT FLG 0 (0-99); LIPEMIA HEMOLYSIS FLAG 80 (0-99); MEAN CELL HEMOGLOBIN 27.5 pg (27.9-34.1); MEAN CELL HEMOGLOBIN CONCENTR. 32.1 g/dL (32.4-36.7); MEAN CELL VOLUME 85.6 fL (81.5-99.8); MEAN PLATELET VOLUME 11.1 fL (8.7-11.7); PLATELET CLUMPS FLAG 0 (0-99); PLATELET COUNT 226 10^3/uL (150-400); RED BLOOD CELL COUNT 5.71 10^6/uL (4.40-6.38); RED CELL DISTRIBUTION WIDTH 17.8 % (11.5-15.2)
[2017-03-22 06:14] LABS: ANION GAP 9 mEq/L (8-16); CALCIUM 8.5 mg/dL (8.5-10.4); CARBON DIOXIDE 24 mEq/l (22-31); CHLORIDE 107 mEq/L (97-110); CREATININE 0.8 mg/dL (0.7-1.3); GLOMERULAR FILTRATION RATE > 60; GLUCOSE 138 mg/dL (70-100); POTASSIUM 4.2 mEq/L (3.5-5.2); SODIUM 140 mEq/L (134-144)
[2017-03-22 07:37] VITALS: BP 141/91; PULSE 73; RESP 18; TEMP 98
[2017-03-22] MEDS: OMEGA-3 FATTY ACIDS 1,000 MG CAP PO SCH (07:43)
[2017-03-22] MEDS: ASPIRIN 81 MG CHEWABLE TAB PO SCH (07:44)
[2017-03-22] MEDS: LISINOPRIL 10 MG TAB PO SCH (07:44)
[2017-03-22] MEDS: HYDROCODONE/APAP 5/325 TAB PO PRN (07:47)
[2017-03-22] MEDS: guaiFENesin/CODEINE PHOS 10 ML UDCUP PO PRN (07:48)
[2017-03-22] MEDS: INSULIN LISPRO 100 UNIT/ML SC SCH ×2 (07:52→11:33)
--- NOTE | 2017-03-22 10:24 | HOSPPROG ---
Hospitalist Progress Note Assessment/Plan: # acute PE with markedly elevated RVSP (~90mmHg) s/p tPA - also with DVT - RVSP 93 -> 55mmHg post lysis # hemoptysis - d/t PE and tPA, resolved # severe pulm-htn d/t PE: there may be a small chronic component given CAMPOS but mostly this is acute # acute hypoxic resp failure d/t PE # epigastric pain - d/t coughing, possible hernia, no signs of entrapment # lactic acidosis d/t PE # CAMPOS # DM2 - glucs ok - hold metformin for now - add low dose SSI # chronic low back pain # dispo - dc tomorrow if still stable, likely on eliquis Subjective: breathing better, still on O2; some epigastric pain Objective: Vital Signs Temp Pulse Resp BP Pulse Ox 36.7 C 73 18 141/91 H 94 03/22/17 07:36 03/22/17 07:36 03/22/17 07:36 03/22/17 07:44 03/22/17 07:36 Microbiology 03/19/17 18:10 Urine Culture - Final Urine,Clean Catch Laboratory Results 03/22/17 05:38 03/22/17 05:38 03/21/17 03/22/17 03/23/17 05:59 05:59 05:59 Intake Total 1494 1926 Output Total 1775 1950 Balance -281 -24 PT 17.8 SEC (12.0-15.0) H 03/19/17 16:40 INR 1.47 (0.83-1.16) H 03/19/17 16:40 echo reviewed - RVSP better CXR personally viewed and interpreted - nothing acute - Physical Exam Constitutional: no apparent distress Cardiovascular: regular rate and rhythym, no murmur, rub, or gallop Respiratory: no respiratory distress, no rales or rhonchi, clear to auscultation Gastrointestinal: normoactive bowel sounds, other (ttp epigastrum, possible hernia), No guarding, No rebound ICD10 Worksheet Patient Problems: Problems Problem Status Onset CHF (congestive heart failure) Acute Cardiac ischemia Acute Chronic back pain Acute Pulmonary embolism Acute
[2017-03-22] MEDS ORDERED: APIXABAN 5 MG TAB PO SCH (13:30)
--- NOTE | 2017-03-22 13:40 | SOAPPROG ---
SOAP Progress Note Assessment/Plan: Assessment/Plan: * Large pulmonary embolism-Status post tPA. Markedly improved -Will DC heparin and start Eliquis today * Hemoptysis-resolved * Pulmonary hypertension- repeat echo shows right ventricular systolic pressure now at 55 * DVT * Chronic back pain * Diabetes * Obstructive sleep apnea * Out of bed to chair * Ambulation * disposition-okay for home from pulmonary standpoint. Follow up with Pulmonary in 3 weeks Subjective: up ambulating. Less breathless. No cough or production of sputum. No further evidence of hemoptysis Objective: Vital Signs Temp Pulse Resp BP Pulse Ox 36.7 C 73 18 141/91 H 94 03/22/17 07:36 03/22/17 07:36 03/22/17 07:36 03/22/17 07:44 03/22/17 07:36 Microbiology 03/19/17 18:10 Urine Culture - Final Urine,Clean Catch Laboratory Results 03/22/17 05:38 03/22/17 05:38 03/21/17 03/22/17 03/23/17 05:59 05:59 05:59 Intake Total 1494 1926 Output Total 1775 1950 400 Balance -281 -24 -400 PT 17.8 SEC (12.0-15.0) H 03/19/17 16:40 INR 1.47 (0.83-1.16) H 03/19/17 16:40 Physical Exam - Physical Exam General Appearance: alert, no apparent distress EENT: PERRL/EOMI, normal ENT inspection, pharynx normal, TMs normal Neck: non-tender, full range of motion, supple, normal inspection Respiratory: chest non-tender, lungs clear, normal breath sounds Cardiac/Chest: normal peripheral pulses, regular rate, rhythm Peripheral Pulses: 2+: carotid (R), carotid (L), femoral (R), femoral (L), dorsalis-pedis (R), dorsalis-pedis (L) Abdomen: normal bowel sounds, non-tender, soft Male Genitalia: deferred Rectal: deferred Skin: normal color, warm/dry Neuro/Psych: no motor/sensory deficits, alert, normal mood/affect, oriented x 3 ICD10 Worksheet Patient Problems: Problems Problem Status Onset CHF (congestive heart failure) Acute Cardiac ischemia Acute Chronic back pain Acute Pulmonary embolism Acute
[2017-03-22 14:27] VITALS: O2SAT 92
--- NOTE | 2017-03-22 15:24 | GDS ---
[f rep st] DISCHARGE SUMMARY DIAGNOSES: 1. Acute pulmonary embolus. 2. Severe acute pulmonary hypertension. 3. Hemoptysis. 4. Acute hypoxic respiratory failure due to pulmonary embolus. 5. Epigastric pain. 6. Lactic acidosis. 7. Diabetes mellitus type 2. 8. Chronic low back pain. HOSPITAL COURSE: A 51-year-old man presented with shortness of breath. Found to have large volume PE. Echocardiogram showed RVSP of 93 mmHg. Because of this, Pulmonology was consulted and we admin istered IV tPA. This was complicated by some hemoptysis which self-resolved. Otherwise, he had bee n treated on a heparin drip. Followup echocardiogram showed RVSP of 55 mmHg post tPA. He is on [place] m air on the day of discharge. I told him I would prefer to monitor him in the hospital for one mor e day; however, he is anxious to be discharged. He will be discharged on Eliquis with followup with Dr. Argueta. BILLING: I spent more than 30 minutes on the day of discharge coordinating care. /[id number]/MODL
[2017-03-26 08:12] LABS: INTERPRETATION See Comments
== END 2017-03-22 18:05 | disposition home or self-care (01) | DRG 175 ==
LOC: F2W 20:00 → F2N 03-20 11:05 → F3E 03-21 19:55
PROVIDERS: ADMIT Family Medicine; ATTEND Student in an Organized Health Care Education/Training Program
DX: I26.99 Other pulmonary embolism without acute cor pulmonale (principal); J96.01 Acute respiratory failure with hypoxia; I50.31 Acute diastolic (congestive) heart failure; I27.2 Other secondary pulmonary hypertension; E11.9 Type 2 diabetes mellitus without complications; M54.9 Dorsalgia, unspecified; G47.33 Obstructive sleep apnea (adult) (pediatric); E66.01 Morbid (severe) obesity due to excess calories; Z68.39 Body mass index [BMI] 39.0-39.9, adult
CPT/HCPCS: 85300-90; 85303-90; 85306-90; 85520-90; 86147-90; 96374; 97116-GP; 97162-GP; 97165-GO; 97530-GO; 97535-GO; J0696; J1170; J1644; J1815; J1940; J2997; Q9967

== ENCOUNTER → 2018-01-27 | Outpatient (CLI) | payer OTHER | LOC: FIMAGING 12:47 | PROVIDERS: ATTEND Internal Medicine | DX: M16.12 Unilateral primary osteoarthritis, left hip (principal); M24.152 Other articular cartilage disorders, left hip ==